=== PATIENT | male | born 1975 | race Caucasian/White ===

== ENCOUNTER 2021-05-18 19:52 | Emergency (ER) | payer SELFPAY ==
[2021-05-18 20:27] LABS: #Basophils 0.1 thou/uL (0.0-0.2); #Eosinphils 0.2 thou/uL (0.0-0.7); #Lymphocytes 2.3 thou/uL (1.20-3.40); #Monocytes 0.6 thou/uL (0.11-0.59); #Neutrophils 6.4 thou/uL (1.40-6.50); %Basophils 0.5 % (0.0-1.0); %Eosinophils 2.4 % (0.0-10.0); %Lymphocytes 23.8 % (21.0-51.0); %Monocytes 5.8 % (0.0-10.0); %Neutrophils 67.4 % (42.0-75.0); Hemoglobin 15.6 g/dL (14.0-18.0); Mean Corpuscular HGB CONC 36.3 g/dL (32.0-36.0); Mean Corpuscular Hemoglobin 34.8 pg (27.0-31.0); Mean Platelet Volume 7.2 fL (7.4-10.4); Platelet Count 227 thou/uL (130-400); RBC Distribution Width 12.1 % (11.5-14.5); Red Blood Cell (RBC) Count 4.49 mill/uL (4.70-6.10); White Blood Cell (WBC) Count 9.5 thou/uL (4.8-10.8)
[2021-05-18 20:48] LABS: Acetaminophen Less than 6.0 mcg/mL (10.0-30.0); Alcohol 118 mg/dL (Less than 10); Salicylate Less than 8.0 mg/dL (15.0-30.0)
[2021-05-18 20:54] LABS: ALT (SGPT) 17 U/L (8-55); AST (SGOT) 17 U/L (5-34); Albumin 3.9 g/dL (3.5-5.0); Alkaline Phosphatase 75 U/L (40-110); Anion Gap 16 mmol/L (10-20); BUN (Urea Nitrogen) 7 mg/dL (8.9-20.6); Bilirubin, Total 0.3 mg/dL (0.2-1.2); Calc. Creatinine Clearance 0 mL/min (70-130); Calcium 9.1 mg/dL (7.8-10.44); Carbon Dioxide 25 mmol/L (22-29); Chloride 106 mmol/L (98-107); Globulin 2.3 g/dL (2.4-3.5); Glucose 89 mg/dL (70-105); Potassium 3.9 mmol/L (3.5-5.1); Protein, Total 6.2 g/dL (6.0-8.3); Sodium 143 mmol/L (136-145)
[2021-05-18] MEDS ORDERED: risperiDONE 1 MG TAB ONE (21:32)
[2021-05-18 21:39] LABS: Bilirubin Negative (Negative); Blood, Urine Negative (Negative); Clarity Clear (Clear); Glucose, Urine (Dipstick) Normal (Negative); Ketone, Urine Negative (Negative); Leukocyte Negative Leu/uL (Negative); Nitrite Negative (Negative); Protein, Urine (Dipstick) Negative (Neg-Trace); Specific Gravity, Urine 1.002 (1.002-1.036); Urobilinogen Normal mg/dL (Less than 2); pH, Urine 6.5 (5.0-9.0)
[2021-05-18 21:48] LABS: Amphetamine Detected (NotDetected); Barbiturates Screen Not Detected (NotDetected); Benzodiazepine Screen Not Detected (NotDetected); Cocaine Metabolite Screen Not Detected (NotDetected); Methadone Not Detected (NotDetected); Methamphetamine Not Detected (NotDetected); Opiate Screen Not Detected (NotDetected); Oxycodone Screen Not Detected (NotDetected); Phencyclidine (PCP) Not Detected (NotDetected); THC/Cannabinoid Screen Not Detected (NotDetected); Tricyclic Screen Not Detected (NotDetected)
[2021-05-19] MEDS ORDERED: traZODone HCl 50 MG TAB ONE ×2 (02:10→02:19)
[2021-05-19] MEDS ORDERED: Nicotine 14 MG PATCH ONE (14:48)
== END 2021-05-19 17:20 | disposition home or self-care (01) ==
LOC: ERS 19:52
DX: F23 Brief psychotic disorder (principal); F10.129 Alcohol abuse with intoxication, unspecified; Y90.5 Blood alcohol level of 100-119 mg/100 ml; I10 Essential (primary) hypertension; F17.210 Nicotine dependence, cigarettes, uncomplicated
CPT/HCPCS: 36415; 80053; 80306; 80307; 81003; 85025; 93005